=== PATIENT | male | born 1970 | race African-American/Black ===

== ENCOUNTER 2017-02-23 19:16 | Inpatient (IN) | payer SELFPAY ==
[~2017-02-23] VITALS: Ht 170.2 cm; Wt 120.2 kg
[2017-02-23] MEDS ORDERED: ONDANSETRON HCL 4MG/2ML VIAL IV STA (22:48)
[2017-02-23] MEDS ORDERED: MORPHINE SULFATE 4 MG/ML CPJ (NOT FOR IM USE) IV STA (22:48)
[2017-02-23] MEDS ORDERED: SODIUM CHLORIDE 0.9% 1,000 ML IV ONE (22:48)
[2017-02-23 23:13] LABS: CLARITY URINE CLEAR (CLEAR); COLOR URINE YELLOW (YELLOW); GLUCOSE URINE 3+ (NEGATIVE); KETONES URINE NEGATIVE (NEGATIVE); LEUKOCYTE ESTERASE URINE NEGATIVE (NEGATIVE); NITRITE URINE NEGATIVE (NEGATIVE); OCCULT BLOOD URINE 3+ (NEGATIVE); PROTEIN URINE 4+ (NEGATIVE); SPECIFIC GRAVITY URINE 1.024 (1.005-1.030); UROBILINOGEN URINE 0.2 E.U./dL (0.2-1.0)
[2017-02-23] MEDS ORDERED: DIPHENHYDRAMINE 50MG/ML VIAL IV ONE (23:15)
[2017-02-23 23:19] LABS: BASOPHILS % 0.8 % (0.0-2.0); EOSINOPHILS % 3.3 % (0.0-5.0); HEMATOCRIT. 41.7 % (42.0-52.0); HEMOGLOBIN. 14.7 g/dL (14.0-18.0); LYMPHOCYTES % 17.3 % (20.0-50.0); MEAN CORPUSCULAR VOLUME 90.6 fL (80.0-94.0); MEAN PLATELET VOLUME 6.2 fl (7.4-10.4); MONOCYTES % 11.9 % (2.0-8.0); NEUTROPHILS % 66.7 % (40.0-76.0); PLATELET 300 x1000/uL (130-400); RED CELL DISTRIBUTION WIDTH 14.2 % (11.6-14.6)
[2017-02-23 23:26] LABS: CARBON DIOXIDE 26 mEq/L (21-32); CHLORIDE 104 mEq/L (98-107)
[2017-02-23 23:33] LABS: TROPONIN I 0.03 ng/mL (0.00-0.04)
[2017-02-24] VITALS (7 sets, daily range): BP systolic 141–181; BP diastolic 67–116
[2017-02-24] MEDS ORDERED: LORAZEPAM 2MG/ML CPJ IV ONE
[2017-02-24] MEDS ORDERED: FENTANYL CITRATE/PF 50MCG/ML 2ML VIAL IV ONE
[2017-02-24] MEDS ORDERED: SODIUM CHLORIDE 0.9% 1,000 ML IV SCH ×2 (01:08→11:40)
[2017-02-24] MEDS ORDERED: ACETAMINOPHEN 325MG TABLET PO PRN ×2 (01:15→11:30)
[2017-02-24] MEDS ORDERED: POTASSIUM CHLORIDE 20MEQ TABLET SR PO ONE (01:45)
[2017-02-24] MEDS ORDERED: NIFE90TA2 PO (02:46)
[2017-02-24] MEDS ORDERED: HYDR100T26 PO (02:50)
[2017-02-24] MEDS ORDERED: ZOLP10TA2 PO (02:50)
[2017-02-24] MEDS ORDERED: MORPHINE SULFATE 4 MG/ML CPJ (NOT FOR IM USE) IV PRN ×2 (06:24→11:30)
[2017-02-24] MEDS ORDERED: DIPHENHYDRAMINE 50MG CAPSULE PO PRN (06:24)
[2017-02-24] MEDS ORDERED: DEXT 5%/0.9% NACL 1,000 ML IV SCH (06:30)
[2017-02-24] MEDS: HYDROCODONE/ACETAMINOPHEN 5/325MG TABLET PO PRN ×2 (08:16→21:06)
[2017-02-24] MEDS: PANTOPRAZOLE 40MG DR TABLET PO SCH (08:16)
[2017-02-24] MEDS: HYDRALAZINE HCL 100MG TABLET PO SCH ×3 (08:17→21:05)
[2017-02-24] MEDS: NIFEDIPINE XL 90MG TAB PO SCH (08:17)
[2017-02-24] MEDS ORDERED: HYDROMORPHONE HCL/PF 2MG/ML CPJ IV PRN ×2 (08:30→08:37)
[2017-02-24] MEDS ORDERED: DOCUSATE SODIUM 100MG CAPSULE PO PRN (11:30)
[2017-02-24] MEDS ORDERED: POTASSIUM CHLORIDE 20MEQ TABLET SR PO NR (11:30)
[2017-02-24] MEDS ORDERED: ONDANSETRON HCL 4MG/2ML VIAL IV PRN (11:30)
[2017-02-24] MEDS ORDERED: HYDROMORPHONE HCL/PF 2MG/ML CPJ IM PRN (12:30)
[2017-02-24] MEDS: HYDROMORPHONE HCL/PF 2MG/ML CPJ IV PRN ×3 (13:42→22:04)
[2017-02-24] MEDS: AMLODIPINE 10MG TABLET PO SCH (13:43)
[2017-02-24] MEDS: DIPHENHYDRAMINE 50MG/ML VIAL IV PRN ×2 (14:04→22:01)
[2017-02-24] MEDS: LEVOFLOXACIN 500MG PREMIX 100 ML IV SCH (14:05)
[2017-02-24] MEDS: CLONIDINE 0.1MG TABLET PO PRN (16:26)
[2017-02-24 16:51] LABS: CREATINE KINASE 387 IU/L (39-308); CREATINE KINASE MB FRACTION 5.1 ng/mL (0.5-3.6); TROPONIN I < 0.02 ng/mL (0.00-0.04)
[2017-02-24 23:27] LABS: CREATINE KINASE 340 IU/L (39-308); CREATINE KINASE MB FRACTION 4.3 ng/mL (0.5-3.6); TROPONIN I < 0.02 ng/mL (0.00-0.04)
[2017-02-25] VITALS (8 sets, daily range): BP systolic 133–210; BP diastolic 88–107
[2017-02-25] MEDS: DIPHENHYDRAMINE 50MG/ML VIAL IV PRN ×4 (03:59→23:59)
[2017-02-25] MEDS: HYDROMORPHONE HCL/PF 2MG/ML CPJ IV PRN ×4 (04:07→18:34)
[2017-02-25] MEDS: HYDRALAZINE HCL 100MG TABLET PO SCH ×3 (06:22→21:12)
[2017-02-25] MEDS: PANTOPRAZOLE 40MG DR TABLET PO SCH (06:22)
[2017-02-25] MEDS: AMLODIPINE 10MG TABLET PO SCH (08:13)
[2017-02-25] MEDS: NIFEDIPINE XL 90MG TAB PO SCH (08:14)
[2017-02-25 08:23] LABS: BASOPHILS % 0.6 % (0.0-2.0); EOSINOPHILS % 4.2 % (0.0-5.0); HEMATOCRIT. 36.7 % (42.0-52.0); HEMOGLOBIN. 12.7 g/dL (14.0-18.0); LYMPHOCYTES % 15.2 % (20.0-50.0); MEAN CORPUSCULAR HEMOGLOBIN 31.6 pg (28.0-32.0); MEAN CORPUSCULAR VOLUME 91.3 fL (80.0-94.0); MEAN PLATELET VOLUME 6.7 fl (7.4-10.4); MONOCYTES % 12.2 % (2.0-8.0); NEUTROPHILS % 67.8 % (40.0-76.0); PLATELET 227 x1000/uL (130-400); RED BLOOD CELL COUNT 4.02 mill/uL (4.7-6.1)
[2017-02-25 09:13] LABS: CARBON DIOXIDE 23 mEq/L (21-32); CHLORIDE 104 mEq/L (98-107); TROPONIN I 0.02 ng/mL (0.00-0.04)
[2017-02-25] MEDS ORDERED: POTASSIUM CHLORIDE 20MEQ TABLET SR PO SCH (09:45)
[2017-02-25] MEDS ORDERED: OXYBUTYNIN CHLORIDE 5MG TABLET PO SCH (10:00)
[2017-02-25] MEDS: CLONIDINE 0.1MG TABLET PO PRN (13:11)
[2017-02-25] MEDS ORDERED: LOSARTAN POTASSIUM 100 MG TABLET PO SCH (13:15)
[2017-02-25] MEDS: LEVOFLOXACIN 500MG PREMIX 100 ML IV SCH (14:04)
[2017-02-25] MEDS: OXYBUTYNIN CHLORIDE 5MG TABLET PO SCH ×2 (16:25→21:12)
[2017-02-25] MEDS: HYDROCODONE/ACETAMINOPHEN 5/325MG TABLET PO PRN (20:08)
[2017-02-25] MEDS: METOPROLOL TARTRATE 50MG TABLET PO SCH (20:09)
[2017-02-25] MEDS ORDERED: ZOLPIDEM TARTRATE 5MG TABLET PO PRN (20:30)
[2017-02-26] VITALS: BP 139/85
[2017-02-26] MEDS: HYDROMORPHONE HCL/PF 2MG/ML CPJ IV PRN ×4 (00:05→14:18)
[2017-02-26 04:09] VITALS: BP 142/79
[2017-02-26] MEDS: OXYBUTYNIN CHLORIDE 5MG TABLET PO SCH ×2 (05:42→13:01)
[2017-02-26] MEDS: DIPHENHYDRAMINE 50MG/ML VIAL IV PRN ×3 (05:42→17:51)
[2017-02-26] MEDS: HYDRALAZINE HCL 100MG TABLET PO SCH ×2 (05:48→13:01)
[2017-02-26 06:23] LABS: BASOPHILS % 0.6 % (0.0-2.0); EOSINOPHILS % 3.8 % (0.0-5.0); HEMATOCRIT. 36.8 % (42.0-52.0); HEMOGLOBIN. 12.8 g/dL (14.0-18.0); LYMPHOCYTES % 20.4 % (20.0-50.0); MEAN CORPUSCULAR HEMOGLOBIN 31.5 pg (28.0-32.0); MEAN CORPUSCULAR VOLUME 90.7 fL (80.0-94.0); MEAN PLATELET VOLUME 6.6 fl (7.4-10.4); MONOCYTES % 13.4 % (2.0-8.0); NEUTROPHILS % 61.8 % (40.0-76.0); PLATELET 253 x1000/uL (130-400); RED BLOOD CELL COUNT 4.06 mill/uL (4.7-6.1); RED CELL DISTRIBUTION WIDTH 14.2 % (11.6-14.6)
[2017-02-26 06:59] LABS: CARBON DIOXIDE 25 mEq/L (21-32); CHLORIDE 101 mEq/L (98-107); TROPONIN I 0.03 ng/mL (0.00-0.04)
[2017-02-26 08:00] VITALS: BP 154/72
[2017-02-26] MEDS ORDERED: POTASSIUM CHLORIDE 20MEQ TABLET SR PO SCH (09:00)
[2017-02-26] MEDS ORDERED: FAMOTIDINE 20MG TABLET PO SCH (09:00)
[2017-02-26] MEDS: METOPROLOL TARTRATE 50MG TABLET PO SCH (09:20)
[2017-02-26] MEDS: NIFEDIPINE XL 90MG TAB PO SCH (09:20)
[2017-02-26] MEDS ORDERED: LEVOFLOXACIN 500MG TABLET PO SCH (11:00)
[2017-02-26 12:30] VITALS: BP 161/104
[2017-02-26 16:45] VITALS: BP 142/87
[2017-02-26 18:10] VITALS: BP 142/87
== END 2017-02-26 18:20 | disposition home or self-care (01) | DRG 469 ==
LOC: ER 19:29 → 5WST 02-24 01:10 → EDBEDREQTM 02-24 01:16 → EDBEDREQ 02-24 01:16 → ENRESERV 02-24 02:08
PROVIDERS: ADMIT Hospitalist; ATTEND Hospitalist
DX: N17.9 Acute kidney failure, unspecified (principal); N30.90 Cystitis, unspecified without hematuria; N32.89 Other specified disorders of bladder; R31.9 Hematuria, unspecified; E87.6 Hypokalemia; I10 Essential (primary) hypertension; Z88.8 Allergy status to other drugs, medicaments and biological substances; R07.9 Chest pain, unspecified
CPT/HCPCS: 36415; 71010; 74176; 76857; 80048; 80053; 81001; 82550; 82553; 83690; 84484; 85025; 93005; 93306; 93970; 96361; 96374; 96375; 99285; J1170; J1200; J1956; J2060; J2270; J2405; J3010; J7030; J7042; Q0163